=== PATIENT | female | born 1995 | race Caucasian/White ===

== ENCOUNTER 2022-02-19 15:14 | Emergency (ER) | payer MEDICAID ==
--- NOTE | 2022-02-19 15:18 | ERPHSYRPT ---
- History of Present Illness Time Seen by Provider: 02/19/22 15:18 Source: patient Exam Limitations: no limitations Physician History: This is a obese 27-year-old white female who presents with 2 day h/o left lower gum/molar pain with swelling around it. pt has had all her wisdom teeth extracted. has not seen a dentist Timing/Duration: gradual onset, days (2) Severity: mild ENT Location: dental Prearrival Treatment: no prearrival treatment Modifying Factors: Improves With: other (chewing) Associated Symptoms: jaw pain (left side lower) Allergies/Adverse Reactions: cyclobenzaprine [From Flexeril] Allergy (Verified 02/19/22 15:28) latex Allergy (Verified 02/19/22 15:28) Penicillins Allergy (Verified 02/19/22 15:28) sumatriptan [From Imitrex] Allergy (Verified 02/19/22 15:28) diphenhydramine [From Benadryl] Adverse Reaction (Verified 02/19/22 15:28) Home Medications: Albuterol 8 gm Mdi Hfa [Ventolin Hfa MDI] 1 ea QID 02/19/22 [History] Clonazepam [Klonopin] 2 mg PO DAILY 02/19/22 [History] Insulin NPH Human Isophane [Novolin N] 5 units TID 02/19/22 [History] Travel Risk - International Travel Have you traveled outside of the country in past 3 weeks: No - Coronavirus Screening Are you exhibiting any of the following symptoms?: No Close contact with a COVID-19 positive Pt in past 14-21 Days: No - Review of Systems Constitutional: No Symptoms Eyes: No Symptoms Ears, Nose, & Throat: Other (dental pain) Respiratory: No Symptoms Cardiac: No Symptoms Abdominal/Gastrointestinal: No Symptoms Genitourinary Symptoms: No Symptoms Musculoskeletal: No Symptoms Skin: No Symptoms Neurological: No Symptoms Psychological: No Symptoms Endocrine: No Symptoms Hematologic/Lymphatic: No Symptoms Immunological/Allergic: No Symptoms All Other Systems: Reviewed and Negative - Past Medical History Pertinent Past Medical History: Yes - Past Surgical History Past Surgical History: Yes - Nursing Vital Signs Nursing Vital Signs: Initial Vital Signs Temperature 97.4 F 02/19/22 15:21 Pulse Rate 94 H 02/19/22 15:21 Respiratory Rate 17 02/19/22 15:21 Blood Pressure 126/95 02/19/22 15:21 O2 Sat by Pulse Oximetry 97 02/19/22 15:21 Pain Scale Pain Intensity 7 - Physical Exam General Appearance: no apparent distress, alert, obese Eye Exam: bilateral eye: normal inspection, PERRL, EOMI Ear Exam: bilateral ear: auricle normal Throat Exam: dental tenderness (left lower molar) Neck Exam: normal inspection, non-tender, supple, full range of motion, trachea midline Cardiovascular/Respiratory Exam: chest non-tender, no respiratory distress Abdominal Exam: non-tender Neurologic Exam: alert, oriented x 3, cooperative, crew team 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 follow up with dentist for definitive care. May also use [id number] topical agents for pain control. Take your antibiotics as prescribed.
[2022-02-19 15:26] VITALS: BP 126/95
[2022-02-19 16:24] VITALS: PULSE 86; O2SAT 98
== END 2022-02-19 16:24 | disposition home or self-care (01) ==
LOC: ED 15:14
DX: K05.10 Chronic gingivitis, plaque induced (principal); K08.89 Other specified disorders of teeth and supporting structures; Z79.4 Long term (current) use of insulin; Z79.899 Other long term (current) drug therapy
CPT/HCPCS: 99282

== ENCOUNTER 2022-02-27 19:39 | Emergency (ER) | payer MEDICAID ==
--- NOTE | 2022-02-27 20:04 | ERPHSYRPT ---
- History of Present Illness Time Seen by Provider: 02/27/22 19:41 Source: patient Exam Limitations: no limitations Patient Subjective Stated Complaint: pt states "My big toenail has been bruised for about 6 months and the toenail came off in the shower today." Triage Nursing Assessment: Pt ambulatory to bed by self, pt alert and orientedx3, pt states "my big toe on my R foot has been brusied for the past 4-6 months. My toenail fell off today in the shower and it has a stinky smell." Pt's 1st digit toenail has been removed. dried old blood noted on toe. pain rating 7/10, no odor noted to area at this time, no signs of infection noted Physician History: 27 years old female with history of diabetes mellitus presented in the ER with right big toe nail injury which happened almost 6 to 8 months ago with hematoma underneath it. This afternoon she was taking a shower and a half of the nail came off with some foul-smelling dried blood underneath. She reports rest of half of nail it hurts with pressure. No swelling of toe, fever or chills reported. Patient is worried about getting infection because of being diabetic. Timing/Duration: today Quality: painful Severity: mild, moderate Location: extremities Associated Symptoms: No rash, No swelling/mass/lumps Allergies/Adverse Reactions: cyclobenzaprine [From Flexeril] Allergy (Verified 02/27/22 19:46) latex Allergy (Verified 02/27/22 19:46) Penicillins Allergy (Verified 02/27/22 19:46) sumatriptan [From Imitrex] Allergy (Verified 02/27/22 19:46) diphenhydramine [From Benadryl] Adverse Reaction (Verified 02/27/22 19:46) Home Medications: Albuterol 8 gm Mdi Hfa [Ventolin Hfa MDI] 1 ea QID 02/19/22 [History] Clonazepam [Klonopin] 1 mg PO DAILY 02/19/22 [History] Insulin NPH Human Isophane [Novolin N] 5 units TID 02/19/22 [History] Hx Tetanus, Diphtheria Vaccination/Date Given: Yes Hx Influenza Vaccination/Date Given: Yes Hx Pneumococcal Vaccination/Date Given: No Immunizations Up to Date: Yes Travel Risk - International Travel Have you traveled outside of the country in past 3 weeks: No - Coronavirus Screening Are you exhibiting any of the following symptoms?: No Close contact with a COVID-19 positive Pt in past 14-21 Days: No - Vaccine Status Have you recieved a Covid-19 vaccination: Yes 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: [employer] - Review of Systems Constitutional: No Symptoms Ears, Nose, & Throat: No Symptoms Respiratory: No Symptoms Cardiac: No Symptoms Abdominal/Gastrointestinal: No Symptoms Musculoskeletal: Injury Skin: Skin Lesions Neurological: No Symptoms Psychological: No Symptoms Hematologic/Lymphatic: No Symptoms Immunological/Allergic: No Symptoms - Past Medical History Pertinent Past Medical History: Yes Respiratory History: Asthma Endocrine Medical History: Diabetes Type II Other Medical History: PTSD - Past Surgical History Past Surgical History: Yes Neuro Surgical History: No Pertinent History Cardiac: No Pertinent History Respiratory: No Pertinent History Gastrointestinal: No Pertinent History Genitourinary: No Pertinent History Musculoskeletal: Orthopedic Surgery Female Surgical History: No Pertinent History Other Surgical History: tubes in ears - Social History Smoking Status: Never smoker Exposure to second hand smoke: No Drug Use: none Patient Lives Alone: Yes (friends) - Female History Hx Last Menstrual Period: 02/13/2022 Hx Now: No - Nursing Vital Signs Nursing Vital Signs: Initial Vital Signs Temperature 97.2 F 02/27/22 19:47 Pulse Rate 130 H 02/27/22 19:47 Respiratory Rate 20 02/27/22 19:47 Blood Pressure 133/97 02/27/22 19:47 O2 Sat by Pulse Oximetry 96 02/27/22 19:47 Pain Scale Pain Intensity 7 - Physical Exam General Appearance: no apparent distress, alert Eye Exam: PERRL/EOMI Neck Exam: normal inspection, full range of motion Respiratory Exam: normal breath sounds, lungs clear Cardiovascular Exam: normal heart sounds, tachycardia Extremity Exam: normal range of motion, other (Right big toe broken distal to third nail with mild blackening of the distal rest of nail. Dried blood on the nailbed. No erythema or tenderness of big toe.) Neurologic Exam: alert, oriented x 3, cooperative Skin Exam: normal color SpO2 Interpretation: normal SpO2: 96 O2 Delivery: Room Air - Progress Progress: unchanged Progress Note: 02/27/22 20:03 She is offered pain medication which she refused. I do not see any signs of infection. She has a broken nail and there was a hematoma blood underneath which might be smelling. No smell at this time. Do not think she needs any work-up now. Recommended outpatient podiatry follow-up. 02/27/22 20:19 Patient has tachycardia and according to her her heart rate is always in 120s/130s. She is not in any distress. Nontoxic appearance. Counseled pt/family regarding: diagnosis, need for follow-up - Departure Departure Disposition: Home Clinical Impression: Injury of toenail of right foot Condition: Stable Critical Care Time: No Referrals: DOCTOR,NO FAMILY [Primary Care Provider] - Follow up/PCP as directed MIRNA CURTIS DPM [ACTIVE STAFF] - Follow up/PCP as directed (1-2 days for reevaluation) Instructions: Toe Injury (DC) Additional Instructions: Keep it clean, Tylenol as needed for pain. Follow-up with podiatry for reevaluation. Return to ER for increasing pain on if has swelling redness discharge etc.
[2022-02-27 20:29] VITALS: BP 130/88; PULSE 107; O2SAT 98
== END 2022-02-27 20:29 | disposition home or self-care (01) ==
LOC: ED 19:39
DX: S90.211A Contusion of right great toe with damage to nail, initial encounter (principal); E11.9 Type 2 diabetes mellitus without complications; Z79.4 Long term (current) use of insulin
CPT/HCPCS: 99281